=== PATIENT | female | born 2000 | race American Indian/Alaskan Native ===

== ENCOUNTER 2019-06-25 16:11 | Emergency (ER) | payer SELFPAY ==
--- NOTE | 2019-06-25 16:39 | Event Note ---
ED Screening Note Date of service: 06/25/19 Time: 16:35 ED Screening Note: This is a 18 y.o. F. that presents to the ER with vaginal irritation x 3 days and concerned of possible STI. Patient also reports swelling and pain around right 2nd nail bed. Patient seen at [facility] and started on antibiotics last week. PMH PCOS LMP 06/14/2019, A0 This initial assessment/diagnostic orders/clinical plan/treatment(s) is/are subject to change based on patients health status, clinical progression and re- assessment by fellow clinical providers in the ED. Further treatment and workup at subsequent clinical providers discretion. Patient/guardian urged not to elope from the ED as their condition may be serious if not clinically assessed and managed. Initial orders include: UA and hCG
[2019-06-25 17:38] LABS: Bilirubin,Urine NEG (Negative); Blood,Urine NEG (Negative); Color,Urine Yellow (Yellow); Mucus,Urine 1+ /HPF; Protein,Urine <15 mg/dL mg/dL (Negative)
[2019-06-25 17:53] LABS: HCG Qualitative,Urine Negative (Negative)
[2019-06-25] MEDS ORDERED: KEFLEX PO ONE (20:01)
[2019-06-25] MEDS ORDERED: TYLENOL PO ONE (20:01)
[2019-06-25] MEDS ORDERED: XYLOCAINE 1% MPF 5 mL INFILTRATI ONE (20:01)
[2019-06-25] MEDS ORDERED: IBUPROFEN PO ONE (20:01)
--- NOTE | 2019-06-25 22:14 | Emergency Department Report ---
ED General Adult HPI - General Chief complaint: Urogenital-Female Stated complaint: ITCHY VAGINA/SWOLLEN FINGER Time Seen by Provider: 06/25/19 16:34 Source: patient Mode of arrival: Ambulatory Limitations: No Limitations - History of Present Illness Initial comments: Patient is a 28-year-old Japanese female with no past medical history presents to the ED, no painful swollen fluctuant distal right index finger maculopapular erythematous rash for the last 6 days. Patient states that she was treated initially at another emergency department and was given topical antibiotics and Bactrim DS. Patient stated that she has only taken one tablet of Bactrim DS that was 24 hours ago. Patient states that the last 2 days the swelling and pain have worsened. Patient also complains of persistent severe vaginal itching for the last 3 days. Patient denies dysuria, urinary frequency and urgency, dizziness, fever, chills, nausea, vomiting, cough, vaginal bleeding or numbness and tingling in all right hand. MD Complaint: right index finger paronychia; vaginal itching -: Sudden, days(s) (5) Location: upper extremity (right index finger paronychia) Radiation: non-radiation Severity scale (0 -10): 6 Quality: aching, sharp, constant Consistency: constant Improves with: none Worsens with: none Associated Symptoms: denies other symptoms. denies: confusion, chest pain, cough, diaphoresis, fever/chills, headaches, loss of appetite, nausea/vomiting, rash, shortness of breath, syncope, weakness, other Treatments Prior to Arrival: none - Related Data Previous Rx's Medication Instructions Recorded Last Taken Type Acetaminophen/Codeine [Tylenol 1 tab PO Q6H PRN 3 Days #10 tab 06/25/19 Unknown Rx /Codeine # 3 tab] Fluconazole [Diflucan TAB] 150 mg PO ONCE #2 tablet 06/25/19 Unknown Rx Ibuprofen [Motrin] 800 mg PO Q8HR PRN #20 tablet 06/25/19 Unknown Rx Nystatin Oint [Mycostatin Oint] 1 applicatio TP Q12H #1 tube 06/25/19 Unknown Rx Allergies Allergy/AdvReac Type Severity Reaction Status Date / Time No Known Allergies Allergy Unverified 06/25/19 16:38 ED Review of Systems ROS: Stated complaint: ITCHY VAGINA/SWOLLEN FINGER Other details as noted in HPI Constitutional: denies: chills, fever Eyes: denies: eye pain, eye discharge, vision change ENT: denies: ear pain, throat pain Respiratory: denies: cough, shortness of breath, wheezing Cardiovascular: denies: chest pain, palpitations Endocrine: no symptoms reported Gastrointestinal: denies: abdominal pain, nausea, diarrhea Genitourinary: discharge, other (vaginal itching). denies: urgency, dysuria Musculoskeletal: joint swelling (right index finger), arthralgia (swollen painful right index finger due to erythematous rash ). denies: back pain Skin: rash (erythematous maculopapular fluctuant rash on distal right index finger), change in color. denies: lesions Neurological: denies: headache, weakness, paresthesias Psychiatric: denies: anxiety, depression Hematological/Lymphatic: denies: easy bleeding, easy bruising ED Past Medical Hx - Past Medical History Additional medical history: PCOD - Surgical History Additional Surgical History: vaginal delivery - Social History Smoking Status: Never Smoker Substance Use Type: None - Medications Home Medications: Home Medications Medication Instructions Recorded Confirmed Last Taken Type Acetaminophen/Codeine [Tylenol 1 tab PO Q6H PRN 3 Days #10 tab 06/25/19 Unknown Rx /Codeine # 3 tab] Fluconazole [Diflucan TAB] 150 mg PO ONCE #2 tablet 06/25/19 Unknown Rx Ibuprofen [Motrin] 800 mg PO Q8HR PRN #20 tablet 06/25/19 Unknown Rx Nystatin Oint [Mycostatin Oint] 1 applicatio TP Q12H #1 tube 06/25/19 Unknown Rx ED Physical Exam - General Limitations: No Limitations General appearance: alert, in no apparent distress - Head Head exam: Present: atraumatic, normocephalic, normal inspection - Eye Eye exam: Present: normal appearance, PERRL, EOMI. Absent: scleral icterus, conjunctival injection, nystagmus, periorbital swelling Pupils: Present: normal accommodation - ENT ENT exam: Present: normal exam, normal orophraynx, mucous membranes moist, TM's normal bilaterally, normal external ear exam - Neck Neck exam: Present: normal inspection, full ROM - Respiratory Respiratory exam: Present: normal lung sounds bilaterally. Absent: respiratory distress, wheezes, rales, rhonchi, stridor, chest wall tenderness, accessory muscle use, decreased breath sounds, prolonged expiratory - Cardiovascular Cardiovascular Exam: Present: regular rate, normal rhythm. Absent: systolic murmur, diastolic murmur, rubs, gallop - GI/Abdominal GI/Abdominal exam: Present: soft, normal bowel sounds, hyperactive bowel sounds. Absent: tenderness, guarding, rebound - Rectal Rectal exam: Present: deferred - External exam: Present: normal external exam Speculum exam: Present: erythema (irritated vaginal labia minora and vaginal introitus and vault), vaginal discharge (mildly trace whiet discharge). Absent: cervical discharge, vaginal bleeding, foreign body, tissue, laceration Bi-manual exam: Absent: cervical motion tendernes, adnexal tenderness, uterine tenderness - Extremities Exam Extremities exam: Present: normal inspection, tenderness (swollen tender right index finger due to erythematous rash on right index finger), normal capillary refill - Back Exam Back exam: Present: normal inspection, full ROM. Absent: tenderness, CVA tenderness (R), CVA tenderness (L), muscle spasm, paraspinal tenderness, vertebral tenderness - Neurological Exam Neurological exam: Present: alert, oriented X3, CN II-XII intact, normal gait, reflexes normal - Psychiatric Psychiatric exam: Present: normal affect, normal mood - Skin Skin exam: Present: warm, dry, intact, normal color, erythema, other (swollen erythematous tender maculopapular fluctuant rash on distal right index finger). Absent: rash ED Course Vital Signs 06/25/19 16:35 Temperature 98 F Pulse Rate 83 Respiratory 18 Rate Blood Pressure 161/87 O2 Sat by Pulse 98 Oximetry - Reevaluation(s) Reevaluation #1: 06/25/19 22:19 This is a 18-year-old Japanese female who presented to the ED with acute onset painful swelling distal right index finger with fluctuant rash, and also with vaginal itching for 6 days. In the ED, urinalysis unremarkable. Pelvic exam shows erythematous irritated vaginal vault and labia minora. The right index finger abscess was incised and drained after applying local anesthesia with lidocaine 1% solution. Patient tolerated the procedure well and was discharged home on medications for pain and advised to continue taking the Bactrim DS that she had started taking. Patient was advised to follow-up with her primary care physician in 7-10 days for reevaluation or return to the ED immediately if symptoms get worse. Patient was otherwise advised to return to the ED in 2 days for wound recheck or packing removal. - I & D Right Distal Finger Type of Procedure: Simple (I&D procedure for paronychia of right index finger) Site: Distal right index finger Blade Size: 11 I & D Procedure: betadine prep, sterile drapes applied, sterile dressing applied, gauze wick placed Progress: Lidocaine 1% solution, 4 cc used to provide a local anethesia. The wound was drained completely and debrided entirely. A sterile gauze wick was used as packing for the wound. The patient elected to the procedure well. The wound was then dressed appropriately and patient is sent home on pain medications and otherwise continue taking previously prescribed antibiotics. Patient was advised to return to the ED in 2 days for wound recheck and packing material removed. ED Medical Decision Making - Medical Decision Making This is a 18-year-old Japanese female who presented to the ED with acute onset painful swelling distal right index finger with fluctuant rash, and also with vaginal itching for 6 days. In the ED, urinalysis unremarkable. Pelvic exam shows erythematous irritated vaginal vault and labia minora. The right index finger abscess was incised and drained after applying local anesthesia with lidocaine 1% solution. Patient tolerated the procedure well and was discharged home on medications for pain and advised to continue taking the Bactrim DS that she had started taking. Patient was advised to follow-up with her primary care physician in 7-10 days for reevaluation or return to the ED immediately if symptoms get worse. Patient was otherwise advised to return to the ED in 2 days for wound recheck or packing removal. - Differential Diagnosis paronychia; cellulitis; vaginitis marilou Critical care attestation.: If time is entered above; I have spent that time in minutes in the direct care of this critically ill patient, excluding procedure time. ED Disposition Clinical Impression: Paronychia of right index finger, Marilou vaginitis Disposition: TO HOME OR SELFCARE Is pt being admited?: No Does the pt Need Aspirin: No Condition: Stable Instructions: Vaginitis (ED), Paronychia (ED) Additional Instructions: Take medications with food, drink plenty of fluids and follow-up with your primary care physician in 7-10 days for reevaluation. Return to the ED in 2 days for wound recheck and packing removal. Prescriptions: Fluconazole [Diflucan TAB] 150 mg PO ONCE #2 tablet Ibuprofen [Motrin] 800 mg PO Q8HR PRN #20 tablet PRN Reason: Pain , Severe (7-10) Nystatin Oint [Mycostatin Oint] 1 applicatio TP Q12H #1 tube Acetaminophen/Codeine [Tylenol /Codeine # 3 tab] 1 tab PO Q6H PRN 3 Days #10 tab PRN Reason: Pain , Severe (7-10) Referrals: [facility] [Outside] - 3-5 Days Time of Disposition: 22:11 Print Language: SINHALA
[2019-06-25 22:30] VITALS: BP 141/77
== END 2019-06-25 22:30 | disposition home or self-care (01) ==
LOC: ED 16:11
DX: L03.011 Cellulitis of right finger (principal); B37.3 Candidiasis of vulva and vagina
CPT/HCPCS: 81001; 81025

== ENCOUNTER 2019-06-27 11:58 | Emergency (ER) | payer SELFPAY ==
[2019-06-27 12:11] VITALS: BP 147/85
--- NOTE | 2019-06-27 12:16 | Emergency Department Report ---
ED Recheck HPI - General Chief Complaint: Wound/Laceration Stated Complaint: BADAGE REMOVAL Time Seen by Provider: 06/27/19 12:08 Source: patient Mode of arrival: Ambulatory Limitations: No Limitations - History of Present Illness Initial Comments: here 2 days ago for packing of paronychia here for recheck on antibiotics - Related Data Previous Rx's Medication Instructions Recorded Last Taken Type Acetaminophen/Codeine [Tylenol 1 tab PO Q6H PRN 3 Days #10 tab 06/25/19 Unknown Rx /Codeine # 3 tab] Fluconazole [Diflucan TAB] 150 mg PO ONCE #2 tablet 06/25/19 Unknown Rx Ibuprofen [Motrin] 800 mg PO Q8HR PRN #20 tablet 06/25/19 Unknown Rx Nystatin Oint [Mycostatin Oint] 1 applicatio TP Q12H #1 tube 06/25/19 Unknown Rx Allergies Allergy/AdvReac Type Severity Reaction Status Date / Time No Known Allergies Allergy Unverified 06/25/19 16:38 ED Review of Systems ROS: Stated complaint: BADAGE REMOVAL Other details as noted in HPI Comment: All other systems reviewed and negative ED Past Medical Hx - Past Medical History Previous Medical History?: No Additional medical history: PCOD - Surgical History Past Surgical History?: Yes Additional Surgical History: tonsilectomy, adenoidectomy - Social History Smoking Status: Never Smoker Substance Use Type: None - Medications Home Medications: Home Medications Medication Instructions Recorded Confirmed Last Taken Type Acetaminophen/Codeine [Tylenol 1 tab PO Q6H PRN 3 Days #10 tab 06/25/19 Unknown Rx /Codeine # 3 tab] Fluconazole [Diflucan TAB] 150 mg PO ONCE #2 tablet 06/25/19 Unknown Rx Ibuprofen [Motrin] 800 mg PO Q8HR PRN #20 tablet 06/25/19 Unknown Rx Nystatin Oint [Mycostatin Oint] 1 applicatio TP Q12H #1 tube 06/25/19 Unknown Rx ED Physical Exam - General Limitations: No Limitations - Eye Eye exam: Present: normal appearance - ENT ENT exam: Present: mucous membranes moist - Neck Neck exam: Present: normal inspection - Neurological Exam Neurological exam: Present: alert, oriented X3 - Skin Skin exam: Present: warm, dry - Other Other exam information: wound healing ED Course Vital Signs 06/27/19 12:08 Temperature 98.4 F Pulse Rate 79 Respiratory 18 Rate Blood Pressure 147/85 O2 Sat by Pulse 99 Oximetry ED Recheck MDM - Differential Diagnosis Wound Recheck - Medical Decision Making wound dressing and packing removed taking antibiotics wound healing well educated on wound care dc home with instructions Critical care attestation.: If time is entered above; I have spent that time in minutes in the direct care of this critically ill patient, excluding procedure time. ED Disposition Clinical Impression: Paronychia of right index finger Disposition: DC-01 TO HOME OR SELFCARE Is pt being admited?: No Does the pt Need Aspirin: No Condition: Stable Instructions: Wound Infection (ED) Additional Instructions: take antibiotics until gone wound care as we discussed motrin or tylenol for pain Time of Disposition: 12:15
== END 2019-06-27 12:22 | disposition home or self-care (01) ==
LOC: ED 11:58
DX: L03.011 Cellulitis of right finger (principal); Z98.890 Other specified postprocedural states; Z79.899 Other long term (current) drug therapy
CPT/HCPCS: 99281

== ENCOUNTER 2019-08-09 20:49 | Emergency (ER) | payer SELFPAY ==
--- NOTE | 2019-08-09 21:31 | Event Note ---
ED Screening Note Date of service: 08/09/19 Time: 21:29 ED Screening Note: This is a 18 y.o. F. that presents to the ER with n/v and headache that started around 1400 today. LMP 08/06/19 Current marijuana smoker PMH of PCOS This initial assessment/diagnostic orders/clinical plan/treatment(s) is/are subject to change based on patients health status, clinical progression and re- assessment by fellow clinical providers in the ED. Further treatment and workup at subsequent clinical providers discretion. Patient/guardian urged not to elope from the ED as their condition may be serious if not clinically assessed and managed. Initial orders include: Labs
[2019-08-09 22:02] LABS: Basophils % (Auto) 0.3 % (0.0-1.8); Eosinophils % (Auto) 0.3 % (0.0-4.3); Hematocrit 37.7 % (30.3-42.9); Lymphocytes # (Auto) 2.1 K/mm3 (1.2-5.4); Lymphocytes % (Auto) 20.7 % (13.4-35.0); Mean Corpuscular HGB Conc 32 % (30-34); Mean Corpuscular Volume 79 fl (79-97); Monocytes # (Auto) 0.4 K/mm3 (0.0-0.8); Monocytes % (Auto) 4.4 % (0.0-7.3); Platelet Count 237 K/mm3 (140-440); Red Blood Count 4.76 M/mm3 (3.65-5.03); Red Cell Distribution Width 17.3 % (13.2-15.2)
[2019-08-09 22:23] LABS: Alanine Aminotransferase 30 units/L (7-56); Albumin 4.3 g/dL (3.9-5); BUN/Creatinine Ratio 9; Blood Urea Nitrogen 6 mg/dL (7-17); Calcium 8.9 mg/dL (8.4-10.2); Hemolysis Index 4
[2019-08-09 22:43] LABS: HCG Qualitative,Urine Negative (Negative)
[2019-08-09 22:45] LABS: Bilirubin,Urine NEG (Negative); Blood,Urine NEG (Negative); Color,Urine Yellow (Yellow); Mucus,Urine 3+ /HPF; Protein,Urine <15 mg/dL mg/dL (Negative)
[2019-08-10] MEDS ORDERED: diphenhydrAMINE 50 MG/ML VIAL IV ONE (00:30)
[2019-08-10] MEDS ORDERED: KETOROLAC 30 MG/1 ML INJ IV ONE (00:30)
[2019-08-10] MEDS ORDERED: METOCLOPRAMIDE 10 MG/2 ML INJ IV ONE (00:30)
[2019-08-10] MEDS ORDERED: D5W/0.45% NACL 1,000 ML IV SCH (01:00)
--- NOTE | 2019-08-10 02:16 | Emergency Department Report ---
ED General Adult HPI - General Chief complaint: Abdominal Pain Stated complaint: EMESIS/ABD PAIN/HEADACHE Time Seen by Provider: 08/09/19 21:28 Source: patient Mode of arrival: Ambulatory Limitations: No Limitations - History of Present Illness Initial comments: Patient is a 18-year-old female who presents to the emergency room with complaints of a frontal headache that began tonight while she was at work. States that she has associated nausea and one episode of emesis and photophobia. Patient states that she has a history of headaches and this headache feels very similar to her previous headaches. She did not take anything for her headache. She denies any fever, abdominal pain, diarrhea, sick contacts, any other symptoms. She has an allergy to tramadol. She states she is currently on her menstrual cycle. She states that since she had her child in February she has had elevated blood pressure but is not seeing anyone for it. Severity scale (0 -10): 9 - Related Data Previous Rx's Medication Instructions Recorded Last Taken Type Acetaminophen/Codeine [Tylenol 1 tab PO Q6H PRN 3 Days #10 tab 06/25/19 Unknown Rx /Codeine # 3 tab] Fluconazole [Diflucan TAB] 150 mg PO ONCE #2 tablet 06/25/19 Unknown Rx Ibuprofen [Motrin] 800 mg PO Q8HR PRN #20 tablet 06/25/19 Unknown Rx Nystatin Oint [Mycostatin Oint] 1 applicatio TP Q12H #1 tube 06/25/19 Unknown Rx Butalb/Acetaminophen/Caffeine 1 cap PO Q8HR PRN #10 cap 08/10/19 Unknown Rx [Fioricet 50-300-40 mg CAP] Ondansetron [Zofran Odt] 4 mg PO Q8HR PRN #10 tab.rapdis 08/10/19 Unknown Rx Allergies Allergy/AdvReac Type Severity Reaction Status Date / Time No Known Allergies Allergy Verified 08/10/19 00:38 ED Review of Systems ROS: Stated complaint: EMESIS/ABD PAIN/HEADACHE Other details as noted in HPI Comment: All other systems reviewed and negative ED Past Medical Hx - Past Medical History Previous Medical History?: Yes Additional medical history: PCOS - Surgical History Past Surgical History?: Yes Additional Surgical History: tonsilectomy, adenoidectomy - Social History Smoking Status: Never Smoker Substance Use Type: None - Medications Home Medications: Home Medications Medication Instructions Recorded Confirmed Last Taken Type Acetaminophen/Codeine [Tylenol 1 tab PO Q6H PRN 3 Days #10 tab 06/25/19 Unknown Rx /Codeine # 3 tab] Fluconazole [Diflucan TAB] 150 mg PO ONCE #2 tablet 06/25/19 Unknown Rx Ibuprofen [Motrin] 800 mg PO Q8HR PRN #20 tablet 06/25/19 Unknown Rx Nystatin Oint [Mycostatin Oint] 1 applicatio TP Q12H #1 tube 06/25/19 Unknown Rx Butalb/Acetaminophen/Caffeine 1 cap PO Q8HR PRN #10 cap 08/10/19 Unknown Rx [Fioricet 50-300-40 mg CAP] Ondansetron [Zofran Odt] 4 mg PO Q8HR PRN #10 tab.rapdis 08/10/19 Unknown Rx ED Physical Exam - General Limitations: No Limitations General appearance: alert, in no apparent distress - Head Head exam: Present: atraumatic, normocephalic - Eye Eye exam: Present: normal appearance, PERRL, EOMI. Absent: nystagmus - ENT ENT exam: Present: mucous membranes moist - Respiratory Respiratory exam: Present: normal lung sounds bilaterally. Absent: respiratory distress, wheezes, rales, rhonchi, stridor, chest wall tenderness, accessory muscle use, decreased breath sounds, prolonged expiratory - Cardiovascular Cardiovascular Exam: Present: regular rate, normal rhythm, normal heart sounds. Absent: systolic murmur, diastolic murmur, rubs, gallop - GI/Abdominal GI/Abdominal exam: Present: soft, normal bowel sounds. Absent: distended, tenderness, guarding, rebound, rigid - Neurological Exam Neurological exam: Present: alert, oriented X3 - Psychiatric Psychiatric exam: Present: normal affect, normal mood - Skin Skin exam: Present: warm, dry, intact ED Course Vital Signs 08/09/19 08/10/19 21:29 02:45 Temperature 97.5 F L 97.6 F Pulse Rate 70 66 Respiratory 18 18 Rate Blood Pressure 167/101 Blood Pressure 106/58 [Left] O2 Sat by Pulse 97 99 Oximetry ED Medical Decision Making - Lab Data Result diagrams: 08/09/19 21:34 08/09/19 21:34 - Medical Decision Making Patient is a 18-year-old female who presents to the emergency room with complaints of a frontal headache that began tonight while she was at work. States that she has associated nausea and one episode of emesis and photophobia. Patient states that she has a history of headaches and this headache feels very similar to her previous headaches. She did not take anything for her headache. She denies any fever, abdominal pain, diarrhea, sick contacts, any other symptoms. She has an allergy to tramadol. She states she is currently on her menstrual cycle. She states that since she had her child in February she has had elevated blood pressure but is not seeing anyone for it. initially in triage pts BP was elevated, but improved to normal upon repeat while in the ED. no neuro deficits on examination. pt given 1L of IVF, toradol, reglan, and benadryl. Headache and nausea completely resolved after medications. Patient given prescription for fioricet and Zofran. advised pt to please take medication as prescribed as needed. drink plenty of water. follow up with a primary care doctor in the next 2-3 days. return to the emergency room for any new or worsening symptoms. - Differential Diagnosis migraine, cluster CARL, tension CARL Critical care attestation.: If time is entered above; I have spent that time in minutes in the direct care of this critically ill patient, excluding procedure time. ED Disposition Clinical Impression: Nausea Headache Qualifiers: Headache type: unspecified Headache chronicity pattern: acute headache Intractability: not intractable Qualified Code(s): R51 - Headache Disposition: DC-01 TO HOME OR SELFCARE Is pt being admited?: No Does the pt Need Aspirin: No Condition: Stable Instructions: Acute Headache (ED) Additional Instructions: please take medication as prescribed as needed. drink plenty of water. follow up with a primary care doctor in the next 2-3 days. return to the emergency room for any new or worsening symptoms. Prescriptions: Butalb/Acetaminophen/Caffeine [Fioricet 50-300-40 mg CAP] 1 cap PO Q8HR PRN #10 cap PRN Reason: headache Ondansetron [Zofran Odt] 4 mg PO Q8HR PRN #10 tab.rapdis PRN Reason: Nausea And Vomiting Referrals: [facility] [Provider Group] - 3-5 Days [facility] [Outside] - 3-5 Days [facility] [Outside] - 3-5 Days Forms: Work/School Release Form(ED) Time of Disposition: 02:52 Print Language: MONGOLIAN
[2019-08-10 02:46] VITALS: BP 106/58
== END 2019-08-10 04:50 | disposition home or self-care (01) ==
LOC: ED 20:49
DX: R51 Headache (principal); R11.2 Nausea with vomiting, unspecified; Z90.89 Acquired absence of other organs; Z98.890 Other specified postprocedural states; Z79.899 Other long term (current) drug therapy
CPT/HCPCS: 36415; 80053; 81001; 81025; 85025; 96361; 96374; 96375; 99283; J1200; J1885; J2765

== ENCOUNTER 2019-10-01 14:32 | Emergency (ER) | payer SELFPAY ==
[2019-10-01 14:52] VITALS: BP 155/80
--- NOTE | 2019-10-01 14:57 | Emergency Department Report ---
Chief Complaint: Nausea/Vomiting/Diarrhea Stated Complaint: NAUSEA/CRAMPING - HPI History of Present Illness: 18 y o female presents for test stating she is about 4 days llate on her cycle she has no complaints tday denies f/c/n/v/pelv apin - ROS Review of Systems: as noted in HPI - Exam Vital Signs: Vital Signs 10/01/19 14:50 Temperature 98.4 F Pulse Rate 78 Respiratory 18 Rate Blood Pressure 155/80 O2 Sat by Pulse 100 Oximetry Physical Exam: GEN: AAO x 3, no acute distress MSE screening note: Focused history and physical exam performed. Due to findings the following was ordered: ED Disposition for MSE Clinical Impression: Well adult health check Disposition: MED SCREENING EXAM-LEFT Is pt being admited?: No Does the pt Need Aspirin: No Condition: Stable Referrals: [facility] [Outside] - 3-5 Days
== END 2019-10-01 16:30 | disposition left against medical advice (07) ==
LOC: ED 14:32
DX: R11.2 Nausea with vomiting, unspecified (principal); R10.9 Unspecified abdominal pain; Z88.6 Allergy status to analgesic agent
CPT/HCPCS: 99281